=== PATIENT | female | born 1985 | race African-American/Black ===

== ENCOUNTER 2020-02-02 18:44 | Emergency (ER) | payer SELFPAY ==
[~2020-02-02] VITALS: Ht 170.2 cm; Wt 95.3 kg
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
[2020-02-02] MEDS ORDERED: LIDODERM700 M1 TOPIC (19:09)
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
[2020-02-02 19:15] VITALS: BP 118/64
[2020-02-02 19:22] VITALS: BP 116/68
--- NOTE | 2020-02-02 19:24 | NUR ---
ER DISCHARGE NOTE: Patient is cleared to be discharged per ERMD, pt is aox4, on room air, with stable vital signs. pt was given dc and prescription instructions, pt was able to verbalize understanding, pt id band . pt is able to ambulate with steady gait. pt took all belongings.
== END 2020-02-02 19:22 | disposition home or self-care (01) ==
LOC: EMR 19:20
DX: M62.830 Muscle spasm of back (principal); S60.022A Contusion of left index finger without damage to nail, initial encounter; V47.5XXA Car driver injured in collision with fixed or stationary object in traffic accident, initial encounter; Y92.410 Unspecified street and highway as the place of occurrence of the external cause
CPT/HCPCS: 99282